=== PATIENT | female | born 1995 | race Caucasian/White ===

== ENCOUNTER 2017-03-19 20:39 | Emergency (ER) | payer OTHER ==
[~2017-03-19] VITALS: Ht 160 cm; Wt 69.1 kg
[2017-03-19 20:40] VITALS: BP 123/82
[2017-03-19] MEDS ORDERED: ACETAMINOPHEN SUSP DYE FREE 160 MG/5 ML UDC PO ONE (21:15)
[2017-03-19] MEDS ORDERED: IBUPROFEN 100 MG/5 ML SUSP UDC DYE FREE PO ONE (21:15)
[2017-03-19] MEDS ORDERED: CLINDAMYCIN 150 MG CAP PO ONE (21:15)
[2017-03-19] MEDS ORDERED: dexameTHASONE 20 MG/5 ML VIAL (J1100) IM ONE (21:15)
[2017-03-19] MEDS ORDERED: CLEO300C2 PO (21:31)
== END 2017-03-19 22:14 | disposition home or self-care (01) ==
LOC: M ED 20:39
DX: J02.9 Acute pharyngitis, unspecified (principal); R50.9 Fever, unspecified
CPT/HCPCS: 87880; 96372; 99283; J1100